=== PATIENT | female | born 2000 | race Two or more races ===

== ENCOUNTER 2024-03-08 19:36 | Emergency (ER) | payer OTHER ==
[~2024-03-08] VITALS: Ht 165.1 cm; Wt 56.7 kg
[2024-03-08] MEDS ORDERED: ACETAMINOPHEN 500 MG GEL..CAP PO ONE (20:30)
== END 2024-03-08 22:09 | disposition home or self-care (01) ==
LOC: ER 19:38
DX: N93.9 Abnormal uterine and vaginal bleeding, unspecified (principal); R10.2 Pelvic and perineal pain

== ENCOUNTER 2024-06-09 12:26 | Emergency (ER) | payer OTHER ==
[~2024-06-09] VITALS: Ht 165.1 cm; Wt 56.7 kg
[2024-06-09] MEDS ORDERED: PRENATAL CAPLE1 EAC1 PO (12:30)
== END 2024-06-09 14:17 | disposition home or self-care (01) ==
LOC: ER 12:29
DX: Z34.90 Encounter for supervision of normal pregnancy, unspecified, unspecified trimester (principal); Z3A.19 19 weeks gestation of pregnancy; S39.81XA Other specified injuries of abdomen, initial encounter; X58.XXXA Exposure to other specified factors, initial encounter; Y93.89 Activity, other specified; Y92.89 Other specified places as the place of occurrence of the external cause; Y99.8 Other external cause status

== ENCOUNTER 2025-01-29 11:12 | Emergency (ER) | payer OTHER ==
[~2025-01-29] VITALS: Ht 165.1 cm; Wt 57.6 kg
[~2025-01-29 11:12] MED LIST: PRENATAL CAPLE1 EAC1 PO
[2025-01-29 12:43] VITALS: BP 107/73; O2SAT 99
[2025-01-29] MEDS ORDERED: ACETAMINOPHEN 500 MG GEL..CAP PO STA (13:01)
[2025-01-29] MEDS ORDERED: ACETAMINOPHEN 500 MG GEL..CAP PO ONE (13:01)
== END 2025-01-29 21:22 | disposition home or self-care (01) ==
LOC: ER 11:12
DX: S92.912A Unspecified fracture of left toe(s), initial encounter for closed fracture (principal); X58.XXXA Exposure to other specified factors, initial encounter; Y93.89 Activity, other specified; Y92.098 Other place in other non-institutional residence as the place of occurrence of the external cause; Y99.8 Other external cause status